=== PATIENT | male | born 1975 | race Two or more races ===

== ENCOUNTER 2017-07-03 06:00 | Emergency (ER) | payer SELFPAY ==
[~2017-07-03] VITALS: Ht 190.5 cm; Wt 99.8 kg
[2017-07-03 06:04] VITALS: BP 140/82
== END 2017-07-03 07:47 | disposition left against medical advice (07) ==
LOC: EDBD 06:00 → ER 06:03
DX: M54.9 Dorsalgia, unspecified (principal); Z53.21 Procedure and treatment not carried out due to patient leaving prior to being seen by health care provider

== ENCOUNTER 2022-03-07 07:03 | Emergency (ER) | payer BC, OTHER ==
[~2022-03-07] VITALS: Ht 182.9 cm; Wt 93.2 kg
[2022-03-07 07:59] LABS: Basophils # (auto) 0.1 10 ^3/uL (0-0.2); Basophils % (auto) 0.8 % (0.0-2.0); Eosinophils # (auto) 0.1 10 ^3/uL (0-0.8); Eosinophils % (auto) 1.9 % (0.0-7.0); Hemoglobin 15.6 g/dL (13.5-17.5); Lymphocytes # (auto) 2.1 10 ^3/uL (0.4-5.4); Lymphocytes % (auto) 26.3 % (10.0-50.0); Mean Corpuscular Hemoglobin 31.4 pg (28.0-32.0); Mean Corpuscular Hgb Conc. 33.9 g/dL (32.0-36.0); Mean Corpuscular Volume 92.4 fL (80.0-100.0); Monocytes # (auto) 0.6 10 ^3/uL (0-1.3); Monocytes % (auto) 7.1 % (0.0-12.0); Neutrophils % (auto) 63.9 % (37.0-80.0); Nucleated Red Blood Cells % 0.1 %; Red Blood Cells 4.98 10^6/uL (4.5-5.90); Red Cell Distribution Width 13.2 % (11.8-14.3); White Blood Cell 7.9 10^3/uL (4.4-10.8)
[2022-03-07 08:08] LABS: Albumin 4.4 g/dL (3.4-5.0); BUN/Creatinine Ratio 15.9; Calcium 8.8 mg/dL (8.5-10.1); Potassium 3.7 mmol/L (3.5-5.1)
[2022-03-07 08:10] LABS: Total Protein 7.5 g/dL (6.4-8.2)
[2022-03-07 08:36] VITALS: BP 112/76
== END 2022-03-07 09:53 | disposition home or self-care (01) ==
LOC: ER 07:03
DX: T59.91XA Toxic effect of unspecified gases, fumes and vapors, accidental (unintentional), initial encounter (principal); R07.89 Other chest pain; I10 Essential (primary) hypertension; K21.9 Gastro-esophageal reflux disease without esophagitis; F17.210 Nicotine dependence, cigarettes, uncomplicated; Y92.9 Unspecified place or not applicable
CPT/HCPCS: 36415; 71046; 80053; 84484; 85025; 93005